=== PATIENT | female | born 1965 ===

== ENCOUNTER 2016-11-11 23:49 | Inpatient (IN) | payer OTHER ==
[2016-11-11 23:49] VITALS: BMI 32.5
[2016-11-11 23:57] VITALS: RESP 20
[2016-11-12] MEDS ORDERED: Sodium Chloride 0.9% 1,000 ML IV ONE (00:08)
--- NOTE | 2016-11-12 00:08 | C.PDOC ---
History Of Present Illness Patient presents to the ER with a complaint of abdominal pain, right flank pain , and vomiting that has worsened today. Patient states she saw her PMD who sent her for blood work; however, she states the pain was too much for she came to the ER. Denies fever or chills. Time Seen by Provider: 11/12/16 00:07 Chief Complaint (Nursing): Abdominal Pain History Per: Patient History/Exam Limitations: no limitations Onset/Duration Of Symptoms: Days Current Symptoms Are (Timing): Still Present Severity: Moderate Pain Scale Rating Of: 4 Location Of Pain/Discomfort: Diffuse Quality Of Discomfort: Unable To Describe Associated Symptoms: Vomiting. denies: Fever, Chills Exacerbating Factors: None Alleviating Factors: None Recent travel outside of the [place]: No Abnormal Vaginal Bleeding: No Past Medical History Reviewed: Historical Data, Nursing Documentation, Vital Signs Vital Signs: Last Vital Signs Temp 98.2 F 11/12/16 01:28 Pulse 85 11/12/16 01:28 Resp 20 11/12/16 01:28 BP 109/69 11/12/16 01:28 Pulse Ox 100 11/12/16 02:24 - Medical History PMH: No Chronic Diseases Surgical History: Appendectomy (2002) Family History: States: No Known Family Hx - Social History Hx Tobacco Use: No Hx Alcohol Use: No Hx Substance Use: No - Immunization History Hx Tetanus Toxoid Vaccination: No Hx Influenza Vaccination: No Hx Pneumococcal Vaccination: No Review Of Systems Constitutional: Negative for: Fever, Chills Gastrointestinal: Positive for: Vomiting, Abdominal Pain Physical Exam - Physical Exam Appears: Non-toxic Skin: Warm, Dry Oral Mucosa: Moist Chest: Symmetrical, No Tenderness Cardiovascular: Rhythm Regular, No Murmur Respiratory: No Rales, No Rhonchi, No Wheezing Gastrointestinal/Abdominal: Soft, Tenderness (RLQ) Neurological/Psych: Oriented x3 ED Course And Treatment - Laboratory Results Result Diagrams: 11/12/16 00:31 11/12/16 00:31 O2 Sat by Pulse Oximetry: 100 (Room air) Pulse Ox Interpretation: Normal Progress Note: Blood work and urinalysis ordered. Pepcid, toradol, morphine, zofran, and IV fluids administered. Disposition Discussed With : Yumiko Bajwa Comment: accepted the pt on his service and took over the care at 2:23 AM Doctor Will See Patient In The: Hospital Counseled Patient/Family Regarding: Studies Performed, Diagnosis - Disposition Disposition: HOSPITALIZED Disposition Time: 00:08 Condition: FAIR - POA Present On Arrival: Poor Glycemic Control - Clinical Impression Clinical Impression: Abdominal pain, Nausea, Acute diverticulitis - Scribe Statement The provider has reviewed the documentation as recorded by the Bettyeibrad Dupree All medical record entries made by the Bettyeibrad were at my direction and personally dictated by me. I have reviewed the chart and agree that the record accurately reflects my personal performance of the history, physical exam, medical decision making, and the department course for this patient. I have also personally directed, reviewed, and agree with the discharge instructions and disposition. Decision To Admit - Pt Status Changed To: Hospital Disposition Of: Inpatient - Admit Certification Admit to Inpatient:: After my assessment, the patient will require hospitalization for at least two midnights. This is because of the severity of symptoms shown, intensity of services needed, and/or the medical risk in this patient being treated as an outpatient. - InPatient: Physician Admission Certification:: After my assessment, the patient will require hospitalization for at least two midnights. This is because of the severity of symptoms shown, intensity of services needed, and/or the medical risk in this patient being treated as an outpatient. - . Bed Request Type: Regular Admitting Physician: Yumiko Bajwa Patient Diagnosis: Abdominal pain, Nausea, Acute diverticulitis
[2016-11-12] MEDS ORDERED: Sodium Chloride 0.9% 1,000 ML ONE (00:25)
[2016-11-12 00:34] LABS: BASO # 0.1 K/uL (0.0-0.2); BASO % 0.6 % (0.0-2.0); EOS # 0.2 K/uL (0.0-0.7); EOS % 1.6 % (0.0-4.0); HEMOGLOBIN 12.9 g/dL (11.0-16.0); LYMPH % 20.3 % (20.0-40.0); MEAN CELL VOLUME 87.7 fL (81.0-99.0); MEAN CORPUSCULAR HEMOGLOBIN 29.1 pg (27.0-31.0); MEAN CORPUSCULAR HGB CONC 33.2 g/dL (33.0-37.0); MEAN PLATELET VOLUME 8.5 fL (7.2-11.7); MONO # 0.6 K/uL (0.0-0.8); MONO % 5.9 % (0.0-10.0); NEUT # 7.1 K/uL (1.8-7.0); NEUT % 71.6 % (50.0-75.0); NRBC % 0.1 % (0.0-2.0); RBC 4.44 Mil/uL (3.80-5.20); RED CELL DISTRIBUTION WIDTH 13.6 % (11.5-14.5); WHITE BLOOD COUNT 9.9 K/uL (4.8-10.8)
[2016-11-12 00:49] LABS: GFR AFRICAN-AMERICAN > 60; GFR NON-AFRICAN AMERICAN > 60
[2016-11-12 00:50] LABS: ALB/GLOB RATIO 1.1 (1.0-2.1); ALT/SGPT 43 U/L (9-52); AST/SGOT 37 U/L (14-36); BLOOD UREA NITROGEN 10 mg/dL (7-17); CALCIUM 8.8 mg/dl (8.6-10.4); LIPASE 52 U/L (23-300)
[2016-11-12 00:51] LABS: SQUAMOUS EPITHIAL 1 /hpf (0-5); URINE BACTERIA RARE (<OCC); URINE BILIRUBIN NEGATIVE (NEGATIVE); URINE BLOOD NEGATIVE (NEGATIVE); URINE CLARITY Clear (Clear); URINE COLOR Colorless (YELLOW); URINE GLUCOSE (UA) NORMAL (Normal); URINE LEUKOCYTE ESTERASE NEG Leu/uL (Negative); URINE NITRATE NEGATIVE (NEGATIVE); URINE PROTEIN NEGATIVE (NEGATIVE); URINE UROBILINOGEN NORMAL mg/dL (0.2-1.0)
[2016-11-12 00:55] LABS: HCG,QUALITATIVE URINE NEGATIVE (NEGATIVE)
--- NOTE | 2016-11-12 02:09 | CT ---
EXAM: CT Abdomen and Pelvis Without Intravenous Contrast CLINICAL HISTORY: 51 years old, female; Pain; Abdominal pain; Patient HX: Us abd 11-06-16; Additional info: R flank pain TECHNIQUE: Axial computed tomography images of the abdomen and pelvis without intravenous contrast. This CT exam was performed using one or more of the following dose reduction techniques: automated exposure control, adjustment of the mA and/or kV according to patient size, and/or use of iterative reconstruction technique. Coronal and sagittal reformatted images were created and reviewed. COMPARISON: No relevant prior studies available. FINDINGS: Lower thorax: Calcified hilar lymph nodes. Minimal atelectasis/scarring. 0.3 cm LEFT lower lobe nodule. ABDOMEN: Liver: Fatty infiltration. Gallbladder and bile ducts: No calcified stones. No ductal dilation. Pancreas: Unremarkable. No ductal dilation. Spleen: Few splenic calcifications. Adrenals: No mass. Kidneys and ureters: Punctate calculus within RIGHT kidney. No hydronephrosis. Stomach and bowel: Few scattered diverticula within colon. Moderate mural thickening of short segment of distal descending/proximal sigmoid colon. Mild stranding within adjacent fat. No obstruction. Appendix: No findings to suggest acute appendicitis. PELVIS: Bladder: Unremarkable. No stones. Reproductive: Few coarse calcifications within uterus. ABDOMEN and PELVIS: Intraperitoneal space: No significant fluid collection. No free air. Bones/joints: No acute fracture. Soft tissues: Unremarkable. Vasculature: Unremarkable. No aneurysm. Lymph nodes: No pathologically enlarged lymph nodes. IMPRESSION: 1. Findings compatible with acute diverticulitis. Recommend endoscopy following resolution. 2. Nonobstructing renal calculus. 3. Probable fibroid uterus. 4. Pulmonary nodules. For low-risk patients, no follow-up is necessary. For high-risk patients (smoking history or other known risk factors) recommend CT at 12 months and if unchanged, no further follow-up. 5. Incidental/non-acute findings are described above.
[2016-11-12] MEDS ORDERED: Ciprofloxacin 400mg/200ml D5W 400 MG/200 ML BAG IVPB STA (02:19)
[2016-11-12] MEDS ORDERED: metroNIDAZOLE IV 500 mg/100 ml 500 MG/100 ML BAG IVPB STA (02:21)
[2016-11-12] MEDS ORDERED: metroNIDAZOLE IV 500 mg/100 ml 500 MG/100 ML BAG ONE (02:29)
[2016-11-12] MEDS ORDERED: Ciprofloxacin 400mg/200ml D5W 400 MG/200 ML BAG IVPB ONE (02:29)
[2016-11-12] MEDS: Levothyroxine 100 MCG TAB PO SCH (08:19)
[2016-11-12] MEDS: Sodium Chloride 0.9% 1,000 ML IV SCH ×2 (08:19→23:11)
[2016-11-12] MEDS: metroNIDAZOLE IV 500 mg/100 ml 500 MG/100 ML BAG IVPB SCH ×2 (09:33→16:16)
[2016-11-12] MEDS: Pantoprazole 40 mg EC Tab PO SCH (09:34)
[2016-11-12] MEDS: Multivitamin With Minerals Tab PO SCH (12:23)
--- NOTE | 2016-11-12 14:59 | CP.PCM.PN ---
Subjective - Date & Time of Evaluation Date of Evaluation: 11/12/16 Time of Evaluation: 09:35 - Subjective Subjective: PGY3 Medicine Note - Dr. Matti Bajwa's service: Patient seen and examined at bedside this AM. Patient reports LLQ abdominal pain. She has not had a bowel movement since yesterday. Patient says she feels a little better. Patient tolerating full diet. Patient denies fever, chills, chest pain, SOB. Objective - Vital Signs/Intake and Output Vital Signs (last 24 hours): Temp Pulse Resp BP Pulse Ox 97.5 F L 74 20 121/77 100 11/12/16 09:04 11/12/16 09:04 11/12/16 09:04 11/12/16 09:04 11/12/16 09:04 Intake and Output: 11/12/16 11/12/16 06:59 18:59 Intake Total 150 1070 Balance 150 1070 - Medications Medications: Current Medications Ciprofloxacin (Cipro) 500 mg PO BID [facility] Last Admin: 11/12/16 09:33 Dose: 500 mg Heparin Sodium (Porcine) (Heparin) 5,000 units SC Q12 [facility] Last Admin: 11/12/16 09:39 Dose: 5,000 units Metronidazole (Flagyl) 500 mg in 100 mls @ 100 mls/hr IVPB Q8H [facility] Last Admin: 11/12/16 09:33 Dose: 100 mls/hr Sodium Chloride (Sodium Chloride 0.9%) 1,000 mls @ 70 mls/hr IV .[id number] [facility] Last Admin: 11/12/16 08:19 Dose: 70 mls/hr Levothyroxine Sodium (Synthroid) 100 mcg PO DAILY@0630 [facility] Last Admin: 11/12/16 08:19 Dose: 100 mcg Morphine Sulfate (Morphine) 4 mg IVP Q4H PRN PRN Reason: Pain, severe (8-10) Last Admin: 11/12/16 14:30 Dose: 4 mg Multivitamins/Minerals (Therapeutic-M Tab) 1 tab PO DAILY [facility] Last Admin: 11/12/16 12:23 Dose: 1 tab Ondansetron HCl (Zofran Inj) 4 mg IVP Q6H PRN PRN Reason: Nausea/Vomiting Pantoprazole Sodium (Protonix Ec Tab) 40 mg PO DAILY [facility] Last Admin: 11/12/16 09:34 Dose: 40 mg Pneumococcal Polyvalent Vaccine (Pneumovax 23 Vaccine) 0.5 ml IM .ONCE ONE Stop: 11/15/16 10:01 - Constitutional Appears: Non-toxic, No Acute Distress - Head Exam Head Exam: NORMAL INSPECTION - Eye Exam Eye Exam: EOMI - ENT Exam ENT Exam: Mucous Membranes Moist - Respiratory Exam Respiratory Exam: Clear to Ausculation Bilateral, NORMAL BREATHING PATTERN. absent: Rales, Rhonchi, Wheezes - Cardiovascular Exam Cardiovascular Exam: REGULAR RHYTHM, +S1, +S2. absent: Gallop, Rubs, Murmur - GI/Abdominal Exam GI & Abdominal Exam: Soft, Tenderness (LLQ), Normal Bowel Sounds - Extremities Exam Extremities Exam: absent: Pedal Edema - Neurological Exam Neurological Exam: Alert, Awake, Oriented x3 - Psychiatric Exam Psychiatric exam: Normal Affect, Normal Mood - Skin Skin Exam: Normal Color, Warm Assessment and Plan - Assessment and Plan (Free Text) Assessment: Diverticulitis Cipro 500mg PO BID Flagyl 500mg IVPB Q8H NS @ 70cc/hr Zofran 4mg IVP Q6H PRN Morphine 4mg IvP Q4H PRN Hypothyroid Synthroid 100mcg PO daily Prophylaxis Hep 5000U SC Q12 Protonix 40mg PO daily
[2016-11-12] MEDS ORDERED: Morphine 4 MG/ML VIAL IVP PRN (15:30)
--- NOTE | 2016-11-12 15:35 | CP.PCM.HP ---
Past Patient History - Past Medical History & Family History Past Medical History?: Yes - Past Social History Smoking Status: Never Smoked - CARDIAC Hx Cardiac Disorders: No - PULMONARY Hx Respiratory Disorders: No - NEUROLOGICAL Hx Neurological Disorder: No - HEENT Hx HEENT Problems: Yes (USE READING GLASSES) - RENAL Hx Chronic Kidney Disease: No - ENDOCRINE/METABOLIC Hx Endocrine Disorders: Yes Other/Comment: HX OF THYROID NODULE REMOVED 1997 - HEMATOLOGICAL/ONCOLOGICAL Hx Blood Disorders: No - INTEGUMENTARY Hx Dermatological Problems: No - MUSCULOSKELETAL/RHEUMATOLOGICAL Hx Musculoskeletal Disorders: No Hx Falls: No - GASTROINTESTINAL Hx Gastrointestinal Disorders: No - GENITOURINARY/GYNECOLOGICAL Hx Genitourinary Disorders: No - PSYCHIATRIC Hx Psychophysiologic Disorder: No Hx Substance Use: No - SURGICAL HISTORY Hx Surgeries: Yes Hx Appendectomy: Yes (2002) Hx Section: Yes (1999) - ANESTHESIA Hx Anesthesia: Yes Hx Anesthesia Reactions: No Hx Malignant Hyperthermia: No Meds Allergies/Adverse Reactions: Allergies Allergy/AdvReac Type Severity Reaction Status Date / Time Iodinated Contrast- Oral and Allergy RASH Verified 03/13/16 08:26 IV Dye [Iodinated Contrast Media - IV Dye] iodine Allergy RASH Verified 03/13/16 08:26 Physical Exam - Constitutional Appears: Well - Head Exam Head Exam: ATRAUMATIC, NORMAL INSPECTION, NORMOCEPHALIC - Eye Exam Eye Exam: EOMI, Normal appearance, PERRL Pupil Exam: NORMAL ACCOMODATION, PERRL - ENT Exam ENT Exam: Mucous Membranes Moist, Normal Exam - Neck Exam Neck exam: Positive for: Normal Inspection - Respiratory Exam Respiratory Exam: Decreased Breath Sounds - Cardiovascular Exam Cardiovascular Exam: REGULAR RHYTHM, +S1, +S2 - GI/Abdominal Exam GI & Abdominal Exam: Diminished Bowel Sounds, Soft - Rectal Exam Rectal Exam: Deferred Results - Vital Signs Recent Vital Signs: Last Vital Signs Temp 97.5 F L 11/12/16 09:04 Pulse 74 11/12/16 09:04 Resp 20 11/12/16 09:04 BP 121/77 11/12/16 09:04 Pulse Ox 100 11/12/16 09:04 - Labs Result Diagrams: 11/12/16 00:31 11/12/16 00:31 Assessment & Plan - Assessment and Plan (Free Text) Plan: Protonix Lovenox GI consult IV antibiotic Follow-up with the labs vital signs and medications
--- NOTE | 2016-11-12 16:03 | CP.PCM.CON ---
<Samantha Davila - Last Filed: 11/12/16 18:43> History of Present Illness - History of Present Illness History of Present Illness: Gastroenterology Fellow/PGY5 Consult Note 51 year old female with history of Hypothyroidism, Diverticulitis 2010, and H. pylori Gastritis 03/2016 presenting with abdominal pain. Patient notes progressive abdominal pain since 10/21/16 associated with postprandial discomfort , bloating, and fullness. Patient had GI clinic visit on with a urea breath test 10/21/16 performed confirming persistent H. pylori with prior triple therapy in 03/2016. She also notes outpatient Ultrasound 11/06/16 showing hepatic steatosis. She then describes sudden onset of severe diffuse abdominal pain (left> right) yesterday, pain scale 7-8/10. Associated nausea, one bilious vomitus, and two episodes of loose diarrhea yesterday evening. Prior EGD and colonoscopy 03/13/16 showed H pylori Gastritis, 3mm sessile sigmoid hyperplastic polyp, and descending/sigmoid diverticulosis. Patient has established GI follow up December [address] Wagner. Family- denies colon cancer, stomach cancer Social- denies tobacco, alcohol illicit drug use Surgery- 3 C-sections, appendectomy, thyroidectomy Past Patient History - Past Medical History & Family History Past Medical History?: Yes - Past Social History Smoking Status: Never Smoked - CARDIAC Hx Cardiac Disorders: No - PULMONARY Hx Respiratory Disorders: No - NEUROLOGICAL Hx Neurological Disorder: No - HEENT Hx HEENT Problems: Yes (USE READING GLASSES) - RENAL Hx Chronic Kidney Disease: No - ENDOCRINE/METABOLIC Hx Endocrine Disorders: Yes Other/Comment: HX OF THYROID NODULE REMOVED 1997 - HEMATOLOGICAL/ONCOLOGICAL Hx Blood Disorders: No - INTEGUMENTARY Hx Dermatological Problems: No - MUSCULOSKELETAL/RHEUMATOLOGICAL Hx Musculoskeletal Disorders: No Hx Falls: No - GASTROINTESTINAL Hx Gastrointestinal Disorders: No - GENITOURINARY/GYNECOLOGICAL Hx Genitourinary Disorders: No - PSYCHIATRIC Hx Psychophysiologic Disorder: No Hx Substance Use: No - SURGICAL HISTORY Hx Surgeries: Yes Hx Appendectomy: Yes (2002) Hx Section: Yes (1999) - ANESTHESIA Hx Anesthesia: Yes Hx Anesthesia Reactions: No Hx Malignant Hyperthermia: No Meds Allergies/Adverse Reactions: Allergies Allergy/AdvReac Type Severity Reaction Status Date / Time Iodinated Contrast- Oral and Allergy RASH Verified 03/13/16 08:26 IV Dye [Iodinated Contrast Media - IV Dye] iodine Allergy RASH Verified 03/13/16 08:26 - Medications Medications: Current Medications Ciprofloxacin (Cipro) 500 mg PO BID [facility] Last Admin: 11/12/16 09:33 Dose: 500 mg Heparin Sodium (Porcine) (Heparin) 5,000 units SC Q12 [facility] Last Admin: 11/12/16 09:39 Dose: 5,000 units Metronidazole (Flagyl) 500 mg in 100 mls @ 100 mls/hr IVPB Q8H [facility] Last Admin: 11/12/16 09:33 Dose: 100 mls/hr Sodium Chloride (Sodium Chloride 0.9%) 1,000 mls @ 70 mls/hr IV .[id number] [facility] Last Admin: 11/12/16 08:19 Dose: 70 mls/hr Levothyroxine Sodium (Synthroid) 100 mcg PO DAILY@0630 [facility] Last Admin: 11/12/16 08:19 Dose: 100 mcg Morphine Sulfate (Morphine) 4 mg IVP Q4H PRN PRN Reason: Pain, severe (8-10) Multivitamins/Minerals (Therapeutic-M Tab) 1 tab PO DAILY [facility] Last Admin: 11/12/16 12:23 Dose: 1 tab Ondansetron HCl (Zofran Inj) 4 mg IVP Q6H PRN PRN Reason: Nausea/Vomiting Pantoprazole Sodium (Protonix Ec Tab) 40 mg PO DAILY [facility] Last Admin: 11/12/16 09:34 Dose: 40 mg Pneumococcal Polyvalent Vaccine (Pneumovax 23 Vaccine) 0.5 ml IM .ONCE ONE Stop: 11/15/16 10:01 Physical Exam - Constitutional Appears: Non-toxic, No Acute Distress - Head Exam Head Exam: ATRAUMATIC, NORMOCEPHALIC - Eye Exam Eye Exam: EOMI, PERRL Pupil Exam: PERRL. absent: Miosis, Mydriatic - ENT Exam ENT Exam: Mucous Membranes Moist, Normal Oropharynx - Neck Exam Neck exam: Positive for: Full Rom, Normal Inspection - Respiratory Exam Respiratory Exam: Clear to Auscultation Bilateral. absent: Rales, Rhonchi, Wheezes - Cardiovascular Exam Cardiovascular Exam: RRR, +S1, +S2. absent: Gallop, Rubs - GI/Abdominal Exam GI & Abdominal Exam: Guarding, Normal Bowel Sounds, Soft, Tenderness. absent: Distended, Firm, Organomegaly, Rebound, Rigid - Extremities Exam Extremities exam: Positive for: normal inspection, pedal edema - Neurological Exam Neurological exam: Alert - Psychiatric Exam Psychiatric exam: Normal Affect, Normal Mood - Skin Skin Exam: Dry, Intact, Normal Color, Warm Results - Vital Signs Recent Vital Signs: Last Vital Signs Temp 97.5 F L 11/12/16 15:00 Pulse 71 11/12/16 15:00 Resp 20 11/12/16 15:00 BP 133/77 11/12/16 15:00 Pulse Ox 98 11/12/16 15:00 - Labs Result Diagrams: 11/12/16 00:31 11/12/16 00:31 Assessment & Plan - Assessment and Plan (Free Text) Assessment: 51 year old female with history of Hypothyroidism, Diverticulosis, and H. pylori Gastritis 03/2016 presenting with abdominal pain, vomiting, and diarrhea. Outpatient ultrasound 11/06/16 showed hepatic steatosis. Active treatment of descending/sigmoid diverticulitis on CT A/P without contrast. Prior EGD and colonoscopy 03/13/16 showed H pylori Gastritis, 3mm sessile sigmoid hyperplastic polyp, and descending/sigmoid diverticulosis. Plan: >continue Cipro and Flagyl >stool workup: Cdiff, stool culture, fecal leukocytes, O&P >supportive care: pain control, anti-emetics >clear liquid diet, advance as tolerated >will benefit from outpatient re-assessment of symptoms >will benefit from repeat H pylori treatment with failed eradication 03/2016 -persistent dyspepsia and positive breath test 10/21/16 >keep previously established GI follow up with Dr. Wagner December 02, 2016 >will follow clinical course <Julian Plasencia Y - Last Filed: 11/12/16 18:50> Meds - Medications Medications: Current Medications Ciprofloxacin (Cipro) 500 mg PO BID [facility] Last Admin: 11/12/16 17:53 Dose: 500 mg Heparin Sodium (Porcine) (Heparin) 5,000 units SC Q12 [facility] Last Admin: 11/12/16 09:39 Dose: 5,000 units Metronidazole (Flagyl) 500 mg in 100 mls @ 100 mls/hr IVPB Q8H [facility] Last Admin: 11/12/16 16:16 Dose: 100 mls/hr Sodium Chloride (Sodium Chloride 0.9%) 1,000 mls @ 70 mls/hr IV .[id number] [facility] Last Admin: 11/12/16 08:19 Dose: 70 mls/hr Levothyroxine Sodium (Synthroid) 100 mcg PO DAILY@0630 [facility] Last Admin: 11/12/16 08:19 Dose: 100 mcg Morphine Sulfate (Morphine) 4 mg IVP Q4H PRN PRN Reason: Pain, severe (8-10) Multivitamins/Minerals (Therapeutic-M Tab) 1 tab PO DAILY [facility] Last Admin: 11/12/16 12:23 Dose: 1 tab Ondansetron HCl (Zofran Inj) 4 mg IVP Q6H PRN PRN Reason: Nausea/Vomiting Pantoprazole Sodium (Protonix Ec Tab) 40 mg PO DAILY [facility] Last Admin: 11/12/16 09:34 Dose: 40 mg Pneumococcal Polyvalent Vaccine (Pneumovax 23 Vaccine) 0.5 ml IM .ONCE ONE Stop: 11/15/16 10:01 Results - Vital Signs Recent Vital Signs: Last Vital Signs Temp 97.5 F L 11/12/16 15:00 Pulse 71 11/12/16 15:00 Resp 20 11/12/16 15:00 BP 133/77 11/12/16 15:00 Pulse Ox 98 11/12/16 15:00 - Labs Result Diagrams: 11/12/16 00:31 11/12/16 00:31 Attending/Attestation - Attestation I have personally seen and examined this patient.: Yes I have fully participated in the care of the patient.: Yes I have reviewed all pertinent clinical information: Yes Notes (Text): 11/12/16 18:44 I have seen and examined patient with GI fellow. Agree with above documentation with the following additions. In brief, this is a 51 year old female with history of hypothyroidism, diverticulitis, who presents with complaint of abdominal pain. She describes a LLQ discomfort with radiation to umbilicus along with bloating that is worse following meal consumption for the past 3 weeks which got worse yesterday. This was associated with nausea and two episodes of non-bloody emesis and diarrhea. She was recently diagnosed with treatment resistant helicobacter pylori associated gastritis and has not started alternative therapy yet. She had a colonoscopy in March [address] Wagner which showed diverticulosis and a hyperplastic polyp. Obesity (BMI 33) Hypothyroidism Abdominal pain - acute diverticulitis, CT imaging reviewed by me showing segment of mural thickening in descending/sigmoid colon without alexandra-colonic abscess - Clear liquid diet as tolerated - Continue with antibiotic therapy - Obtain stool studies - Pain control and anti-emetic therapy PRN - She will eventually need to undergo therapy for Hpylori associated gastritis, has an outpatient follow up appointment at the end of this month - No clinical necessity for repeat colonoscopy given recent procedure. Rather she would benefit from aggressive bowel regimen and dietary modification. Will continue to monitor patient clinical course.
[2016-11-13] MEDS: metroNIDAZOLE IV 500 mg/100 ml 500 MG/100 ML BAG IVPB SCH ×3 (01:16→17:30)
[2016-11-13] MEDS: Levothyroxine 100 MCG TAB PO SCH (06:18)
[2016-11-13] MEDS ORDERED: Levothyroxine 100 MCG TAB PO SCH (06:30)
--- NOTE | 2016-11-13 07:03 | CP.PCM.PN ---
<Samantha Davila - Last Filed: 11/13/16 06:59> Subjective - Date & Time of Evaluation Date of Evaluation: 11/13/16 Time of Evaluation: 06:59 - Subjective Subjective: Gastroenterology Fellow/PGY5 Progress Note Patient notes mild improvement in abdominal pain, pain scale 8/10. Tolerated clear liquids. No bowel movement yesterday. A 12-point review of systems negative except for as above. Objective - Vital Signs/Intake and Output Vital Signs (last 24 hours): Temp Pulse Resp BP Pulse Ox 98 F 78 20 123/73 97 11/13/16 00:00 11/13/16 00:00 11/13/16 00:00 11/13/16 00:00 11/13/16 00:00 Intake and Output: 11/12/16 11/13/16 18:59 06:59 Intake Total 1070 990 Balance 1070 990 - Medications Medications: Current Medications Ciprofloxacin (Cipro) 500 mg PO BID [facility] Last Admin: 11/12/16 17:53 Dose: 500 mg Heparin Sodium (Porcine) (Heparin) 5,000 units SC Q12 [facility] Last Admin: 11/12/16 21:12 Dose: 5,000 units Metronidazole (Flagyl) 500 mg in 100 mls @ 100 mls/hr IVPB Q8H [facility] Last Admin: 11/13/16 01:16 Dose: 100 mls/hr Sodium Chloride (Sodium Chloride 0.9%) 1,000 mls @ 70 mls/hr IV .[id number] [facility] Last Admin: 11/12/16 23:11 Dose: 70 mls/hr Levothyroxine Sodium (Synthroid) 100 mcg PO DAILY@0630 [facility] Last Admin: 11/13/16 06:18 Dose: 100 mcg Morphine Sulfate (Morphine) 4 mg IVP Q4H PRN PRN Reason: Pain, severe (8-10) Last Admin: 11/12/16 21:31 Dose: 4 mg Multivitamins/Minerals (Therapeutic-M Tab) 1 tab PO DAILY [facility] Last Admin: 11/12/16 12:23 Dose: 1 tab Ondansetron HCl (Zofran Inj) 4 mg IVP Q6H PRN PRN Reason: Nausea/Vomiting Pantoprazole Sodium (Protonix Ec Tab) 40 mg PO DAILY [facility] Last Admin: 11/12/16 09:34 Dose: 40 mg Pneumococcal Polyvalent Vaccine (Pneumovax 23 Vaccine) 0.5 ml IM .ONCE ONE Stop: 11/15/16 10:01 - Constitutional Appears: Non-toxic, No Acute Distress - Head Exam Head Exam: ATRAUMATIC, NORMOCEPHALIC - Eye Exam Eye Exam: EOMI, PERRL Pupil Exam: PERRL. absent: Miosis, Mydriatic - ENT Exam ENT Exam: Mucous Membranes Moist, Normal Oropharynx - Neck Exam Neck Exam: Full ROM, Normal Inspection - Respiratory Exam Respiratory Exam: Clear to Ausculation Bilateral. absent: Rales, Rhonchi, Wheezes - Cardiovascular Exam Cardiovascular Exam: RRR, +S1, +S2. absent: Gallop, Rubs - GI/Abdominal Exam GI & Abdominal Exam: Soft, Tenderness, Normal Bowel Sounds. absent: Distended, Firm, Guarding, Rigid, Organomegaly, Rebound Additional comments: left miley-abdomen pain to palpation - Extremities Exam Extremities Exam: Normal Inspection. absent: Pedal Edema - Neurological Exam Neurological Exam: Alert, Awake - Psychiatric Exam Psychiatric exam: Normal Affect, Normal Mood - Skin Skin Exam: Dry, Intact, Normal Color, Warm Assessment and Plan - Assessment and Plan (Free Text) Assessment: 51 year old female with history of Hypothyroidism, Diverticulosis, and H. pylori Gastritis 03/2016 presenting with abdominal pain, vomiting, and diarrhea. Outpatient ultrasound 11/06/16 showed hepatic steatosis. Active treatment of descending/sigmoid diverticulitis on CT A/P without contrast. Prior EGD and colonoscopy 03/13/16 showed H pylori Gastritis, 3mm sessile sigmoid hyperplastic polyp, and descending/sigmoid diverticulosis. Plan: >continue Cipro and Flagyl >stool workup: Cdiff, stool culture, fecal leukocytes, O&P >supportive care: pain control, anti-emetics >advance to full liquid diet >will benefit from outpatient follow up for H pylori treatment with failed eradication 03/2016 -persistent dyspepsia and positive breath test 10/21/16 >keep previously established GI follow up with Dr. Wagner, December 02, 2016 >will follow clinical course <Chilo Wagner - Last Filed: 11/13/16 13:49> Objective - Vital Signs/Intake and Output Vital Signs (last 24 hours): Temp Pulse Resp BP Pulse Ox 98 F 70 20 137/88 99 11/13/16 08:00 11/13/16 08:00 11/13/16 08:00 11/13/16 08:00 11/13/16 08:00 Intake and Output: 11/13/16 11/13/16 06:59 18:59 Intake Total 990 800 Balance 990 800 - Medications Medications: Current Medications Ciprofloxacin (Cipro) 500 mg PO BID [facility] Last Admin: 11/13/16 09:27 Dose: 500 mg Heparin Sodium (Porcine) (Heparin) 5,000 units SC Q12 [facility] Last Admin: 11/13/16 09:28 Dose: 5,000 units Metronidazole (Flagyl) 500 mg in 100 mls @ 100 mls/hr IVPB Q8H [facility] Last Admin: 11/13/16 09:26 Dose: 100 mls/hr Sodium Chloride (Sodium Chloride 0.9%) 1,000 mls @ 70 mls/hr IV .[id number] [facility] Last Admin: 11/13/16 11:55 Dose: 70 mls/hr Levothyroxine Sodium (Synthroid) 100 mcg PO DAILY@0630 [facility] Last Admin: 11/13/16 06:18 Dose: 100 mcg Morphine Sulfate (Morphine) 4 mg IVP Q4H PRN PRN Reason: Pain, severe (8-10) Last Admin: 11/12/16 21:31 Dose: 4 mg Multivitamins/Minerals (Therapeutic-M Tab) 1 tab PO DAILY [facility] Last Admin: 11/13/16 09:27 Dose: 1 tab Ondansetron HCl (Zofran Inj) 4 mg IVP Q6H PRN PRN Reason: Nausea/Vomiting Pantoprazole Sodium (Protonix Ec Tab) 40 mg PO DAILY [facility] Last Admin: 11/13/16 09:27 Dose: 40 mg Pneumococcal Polyvalent Vaccine (Pneumovax 23 Vaccine) 0.5 ml IM .ONCE ONE Stop: 11/15/16 10:01 - Labs Labs: 11/13/16 11:42 11/13/16 11:42 Attending/Attestation - Attestation I have personally seen and examined this patient.: Yes I have fully participated in the care of the patient.: Yes I have reviewed all pertinent clinical information, including history, physical exam and plan: Yes Notes (Text): 11/13/16 13:47 51 year old female with h/o hypothyroidism, Diverticulosis, and H. pylori Gastritis admitted with acute diverticulitis 1. Acute diverticulitis 2. Helicobacter pylori gastritis Plan: -uncomplicated acute diverticulitis -continue antibiotics, plan for 10-14 day course -slowly improving -supportive care -advance diet as tolerated -will need retreatment of h pylori in the future
--- NOTE | 2016-11-13 08:33 | CP.PCM.PN ---
Subjective - Date & Time of Evaluation Date of Evaluation: 11/13/16 Time of Evaluation: 08:00 - Subjective Subjective: PGY3 Medicine Note - Dr. Matti Bajwa's service: Patient seen and examined at bedside this AM. Patient continues to experience LLQ pain, which has improved a great deal since yesterday. She is tolerating CLD ordered by GI. She had a minor headache this morning. Denies chest pain, SOB , fevers, chills, diarrhea, constipation, nausea, vomiting. Last BM was 2 days ago at home. Objective - Vital Signs/Intake and Output Vital Signs (last 24 hours): Temp Pulse Resp BP Pulse Ox 98 F 78 20 123/73 97 11/13/16 00:00 11/13/16 00:00 11/13/16 00:00 11/13/16 00:00 11/13/16 00:00 Intake and Output: 11/13/16 11/13/16 06:59 18:59 Intake Total 990 800 Balance 990 800 - Medications Medications: Current Medications Ciprofloxacin (Cipro) 500 mg PO BID [facility] Last Admin: 11/12/16 17:53 Dose: 500 mg Heparin Sodium (Porcine) (Heparin) 5,000 units SC Q12 [facility] Last Admin: 11/12/16 21:12 Dose: 5,000 units Metronidazole (Flagyl) 500 mg in 100 mls @ 100 mls/hr IVPB Q8H [facility] [place] Last Admin: 11/13/16 01:16 Dose: 100 mls/hr Sodium Chloride (Sodium Chloride 0.9%) 1,000 mls @ 70 mls/hr IV .[id number] [facility] Last Admin: 11/12/16 23:11 Dose: 70 mls/hr Levothyroxine Sodium (Synthroid) 100 mcg PO DAILY@0630 [facility] Last Admin: 11/13/16 06:18 Dose: 100 mcg Morphine Sulfate (Morphine) 4 mg IVP Q4H PRN PRN Reason: Pain, severe (8-10) Last Admin: 11/12/16 21:31 Dose: 4 mg Multivitamins/Minerals (Therapeutic-M Tab) 1 tab PO DAILY [facility] Last Admin: 11/12/16 12:23 Dose: 1 tab Ondansetron HCl (Zofran Inj) 4 mg IVP Q6H PRN PRN Reason: Nausea/Vomiting Pantoprazole Sodium (Protonix Ec Tab) 40 mg PO DAILY [facility] Last Admin: 11/12/16 09:34 Dose: 40 mg Pneumococcal Polyvalent Vaccine (Pneumovax 23 Vaccine) 0.5 ml IM .ONCE ONE Stop: 11/15/16 10:01 - Constitutional Appears: No Acute Distress - Head Exam Head Exam: NORMAL INSPECTION, NORMOCEPHALIC - Eye Exam Eye Exam: EOMI - ENT Exam ENT Exam: Mucous Membranes Moist - Respiratory Exam Respiratory Exam: Clear to Ausculation Bilateral, NORMAL BREATHING PATTERN - Cardiovascular Exam Cardiovascular Exam: REGULAR RHYTHM, +S1, +S2 - GI/Abdominal Exam GI & Abdominal Exam: Soft, Tenderness (LLQ), Normal Bowel Sounds. absent: Firm - Extremities Exam Extremities Exam: Full ROM, Normal Inspection. absent: Pedal Edema - Back Exam Back Exam: NORMAL INSPECTION - Neurological Exam Neurological Exam: Alert, Awake, Oriented x3 - Psychiatric Exam Psychiatric exam: Normal Affect, Normal Mood - Skin Skin Exam: Normal Color, Warm Assessment and Plan (1) Acute diverticulitis Assessment & Plan: GI consult placed-Dr. Plasencia- help appreciated As per GI team: * continue IV antibiotics * f/u stool workup: Cdiff, stool culture, fecal leukocytes, O&P * supportive care: pain control, anti-emetics * advance to full liquid diet today * Will benefit from outpatient follow up for H pylori treatment with failed eradication 03/2016 Cipro 500mg PO BID Flagyl 500mg IVPB Q8H NS @ 70cc/hr Zofran 4mg IVP Q6H PRN Morphine 4mg IvP Q4H PRN Status: Acute (2) Hypothyroidism Assessment & Plan: Synthroid 100mcg PO daily Status: Acute (3) Prophylactic measure Assessment & Plan: Hep 5000U SC Q12 Protonix 40mg PO daily Status: Acute - Assessment and Plan (Free Text) Assessment: All management as per Dr. Jill Bajwa.
[2016-11-13 09:13] VITALS: O2SAT 99
[2016-11-13] MEDS: Pantoprazole 40 mg EC Tab PO SCH (09:27)
[2016-11-13] MEDS: Multivitamin With Minerals Tab PO SCH (09:27)
[2016-11-13] MEDS: Sodium Chloride 0.9% 1,000 ML IV SCH (11:55)
[2016-11-13 11:56] LABS: BASO # 0.1 K/uL (0.0-0.2); BASO % 0.9 % (0.0-2.0); EOS # 0.2 K/uL (0.0-0.7); HEMOGLOBIN 12.5 g/dL (11.0-16.0); LYMPH # 1.8 K/uL (1.0-4.3); LYMPH % 30.5 % (20.0-40.0); MEAN CELL VOLUME 88.2 fL (81.0-99.0); MEAN CORPUSCULAR HEMOGLOBIN 29.7 pg (27.0-31.0); MEAN CORPUSCULAR HGB CONC 33.7 g/dL (33.0-37.0); MEAN PLATELET VOLUME 9.1 fL (7.2-11.7); MONO # 0.4 K/uL (0.0-0.8); MONO % 6.7 % (0.0-10.0); NEUT # 3.5 K/uL (1.8-7.0); NEUT % 58.9 % (50.0-75.0); RBC 4.2 Mil/uL (3.80-5.20); RED CELL DISTRIBUTION WIDTH 13.6 % (11.5-14.5); WHITE BLOOD COUNT 5.9 K/uL (4.8-10.8)
[2016-11-13 12:03] LABS: ALBUMIN 3.8 g/dL (3.5-5.0)
[2016-11-13 12:05] LABS: GFR AFRICAN-AMERICAN > 60; GFR NON-AFRICAN AMERICAN > 60
[2016-11-13 12:06] LABS: ALT/SGPT 47 U/L (9-52); AST/SGOT 40 U/L (14-36); BLOOD UREA NITROGEN 4 mg/dL (7-17); CALCIUM 8.5 mg/dl (8.6-10.4)
[2016-11-13 12:33] LABS: HEPATITIS B SURFACE AG NEGATIVE (NEGATIVE)
[2016-11-13 12:38] LABS: HEPATITIS A IGM NEGATIVE (NEGATIVE)
[2016-11-13 12:39] LABS: HEPATITIS B CORE AB NEGATIVE (NEGATIVE)
[2016-11-13 12:51] LABS: HEPATITIS C ANTIBODY NEGATIVE (NEGATIVE)
--- NOTE | 2016-11-13 17:58 | CP.PCM.PN ---
Subjective - Date & Time of Evaluation Date of Evaluation: 11/13/16 Time of Evaluation: 08:40 - Subjective Subjective: clinically same Objective - Vital Signs/Intake and Output Vital Signs (last 24 hours): Temp Pulse Resp BP Pulse Ox 98.5 F 61 20 136/79 99 11/13/16 16:00 11/13/16 16:00 11/13/16 16:00 11/13/16 16:00 11/13/16 16:00 Intake and Output: 11/13/16 11/13/16 06:59 18:59 Intake Total 990 1820 Balance 990 1820 - Medications Medications: Current Medications Ciprofloxacin (Cipro) 500 mg PO BID [facility] Last Admin: 11/13/16 09:27 Dose: 500 mg Heparin Sodium (Porcine) (Heparin) 5,000 units SC Q12 [facility] Last Admin: 11/13/16 09:28 Dose: 5,000 units Metronidazole (Flagyl) 500 mg in 100 mls @ 100 mls/hr IVPB Q8H [facility] Last Admin: 11/13/16 09:26 Dose: 100 mls/hr Sodium Chloride (Sodium Chloride 0.9%) 1,000 mls @ 70 mls/hr IV .[id number] [facility] Last Admin: 11/13/16 11:55 Dose: 70 mls/hr Levothyroxine Sodium (Synthroid) 100 mcg PO DAILY@0630 [facility] Last Admin: 11/13/16 06:18 Dose: 100 mcg Morphine Sulfate (Morphine) 4 mg IVP Q4H PRN PRN Reason: Pain, severe (8-10) Last Admin: 11/12/16 21:31 Dose: 4 mg Multivitamins/Minerals (Therapeutic-M Tab) 1 tab PO DAILY [facility] Last Admin: 11/13/16 09:27 Dose: 1 tab Ondansetron HCl (Zofran Inj) 4 mg IVP Q6H PRN PRN Reason: Nausea/Vomiting Pantoprazole Sodium (Protonix Ec Tab) 40 mg PO DAILY [facility] Last Admin: 11/13/16 09:27 Dose: 40 mg Pneumococcal Polyvalent Vaccine (Pneumovax 23 Vaccine) 0.5 ml IM .ONCE ONE Stop: 11/15/16 10:01 - Labs Labs: 11/13/16 11:42 11/13/16 11:42 - Constitutional Appears: Well - Head Exam Head Exam: ATRAUMATIC, NORMAL INSPECTION, NORMOCEPHALIC - Eye Exam Eye Exam: EOMI, Normal appearance, PERRL Pupil Exam: NORMAL ACCOMODATION, PERRL - ENT Exam ENT Exam: Mucous Membranes Moist, Normal Exam - Neck Exam Neck Exam: Full ROM, Normal Inspection. absent: Lymphadenopathy - Respiratory Exam Respiratory Exam: Decreased Breath Sounds - Cardiovascular Exam Cardiovascular Exam: REGULAR RHYTHM, +S1, +S2 - GI/Abdominal Exam GI & Abdominal Exam: Soft, Diminished Bowel Sounds - Rectal Exam Rectal Exam: Deferred
[2016-11-14] MEDS: metroNIDAZOLE IV 500 mg/100 ml 500 MG/100 ML BAG IVPB SCH ×2 (00:57→10:28)
[2016-11-14] MEDS: Levothyroxine 100 MCG TAB PO SCH (06:04)
[2016-11-14] MEDS: Sodium Chloride 0.9% 1,000 ML IV SCH (06:06)
[2016-11-14 07:18] LABS: BASO % 0.8 % (0.0-2.0); EOS # 0.3 K/uL (0.0-0.7); EOS % 5.6 % (0.0-4.0); HEMOGLOBIN 12.1 g/dL (11.0-16.0); LYMPH # 1.5 K/uL (1.0-4.3); LYMPH % 31.1 % (20.0-40.0); MEAN CELL VOLUME 87.7 fL (81.0-99.0); MEAN CORPUSCULAR HEMOGLOBIN 29.4 pg (27.0-31.0); MEAN CORPUSCULAR HGB CONC 33.5 g/dL (33.0-37.0); MEAN PLATELET VOLUME 8.8 fL (7.2-11.7); MONO # 0.3 K/uL (0.0-0.8); MONO % 6.8 % (0.0-10.0); NEUT # 2.7 K/uL (1.8-7.0); NEUT % 55.7 % (50.0-75.0); NRBC % 0.1 % (0.0-2.0); RBC 4.12 Mil/uL (3.80-5.20); RED CELL DISTRIBUTION WIDTH 13.8 % (11.5-14.5); WHITE BLOOD COUNT 4.8 K/uL (4.8-10.8)
[2016-11-14 07:22] LABS: ALBUMIN 3.5 g/dL (3.5-5.0)
[2016-11-14 07:24] LABS: GFR AFRICAN-AMERICAN > 60; GFR NON-AFRICAN AMERICAN > 60
[2016-11-14 07:25] LABS: ALT/SGPT 48 U/L (9-52); BLOOD UREA NITROGEN 5 mg/dL (7-17)
[2016-11-14 07:26] LABS: CALCIUM 7.9 mg/dl (8.6-10.4); MAGNESIUM 2.1 mg/dL (1.6-2.3)
[2016-11-14 07:47] LABS: AST/SGOT 44 U/L (14-36)
[2016-11-14 09:21] VITALS: BP 149/82; PULSE 60; TEMP 97.7
--- NOTE | 2016-11-14 09:56 | CP.PCM.PN ---
<GiovanniSamantha - Last Filed: 11/14/16 09:53> Subjective - Date & Time of Evaluation Date of Evaluation: 11/14/16 Time of Evaluation: 09:53 - Subjective Subjective: Gastroenterology Fellow/PGY5 Progress Note Patient notes improving abdominal pain, pain scale 5/10. Tolerated regular diet. No bowel movement since Wednesday. A 12-point review of systems negative except for as above. Objective - Vital Signs/Intake and Output Vital Signs (last 24 hours): Temp Pulse Resp BP Pulse Ox 97.7 F 60 20 149/82 99 11/14/16 07:20 11/14/16 07:20 11/14/16 07:20 11/14/16 07:20 11/14/16 07:20 Intake and Output: 11/14/16 11/14/16 06:59 18:59 Intake Total 1760 Balance 1760 - Medications Medications: Current Medications Ciprofloxacin (Cipro) 500 mg PO BID [facility] Last Admin: 11/13/16 18:13 Dose: 500 mg Heparin Sodium (Porcine) (Heparin) 5,000 units SC Q12 [facility] Last Admin: 11/13/16 21:20 Dose: 5,000 units Metronidazole (Flagyl) 500 mg in 100 mls @ 100 mls/hr IVPB Q8H [facility] Last Admin: 11/14/16 00:57 Dose: 100 mls/hr Sodium Chloride (Sodium Chloride 0.9%) 1,000 mls @ 70 mls/hr IV .[id number] [facility] Last Admin: 11/14/16 06:06 Dose: 70 mls/hr Levothyroxine Sodium (Synthroid) 100 mcg PO DAILY@0630 [facility] Last Admin: 11/14/16 06:04 Dose: 100 mcg Morphine Sulfate (Morphine) 4 mg IVP Q4H PRN PRN Reason: Pain, severe (8-10) Last Admin: 11/12/16 21:31 Dose: 4 mg Multivitamins/Minerals (Therapeutic-M Tab) 1 tab PO DAILY [facility] Last Admin: 11/13/16 09:27 Dose: 1 tab Ondansetron HCl (Zofran Inj) 4 mg IVP Q6H PRN PRN Reason: Nausea/Vomiting Pantoprazole Sodium (Protonix Ec Tab) 40 mg PO DAILY [facility] Last Admin: 11/13/16 09:27 Dose: 40 mg Pneumococcal Polyvalent Vaccine (Pneumovax 23 Vaccine) 0.5 ml IM .ONCE ONE Stop: 11/15/16 10:01 - Labs Labs: 11/14/16 07:00 11/14/16 07:00 - Constitutional Appears: Non-toxic, No Acute Distress - Head Exam Head Exam: ATRAUMATIC, NORMOCEPHALIC - Eye Exam Eye Exam: EOMI, PERRL Pupil Exam: PERRL. absent: Miosis, Mydriatic - ENT Exam ENT Exam: Mucous Membranes Moist, Normal Oropharynx - Neck Exam Neck Exam: Full ROM, Normal Inspection - Respiratory Exam Respiratory Exam: Clear to Ausculation Bilateral. absent: Rales, Rhonchi, Wheezes - Cardiovascular Exam Cardiovascular Exam: RRR, +S1, +S2. absent: Gallop, Rubs - GI/Abdominal Exam GI & Abdominal Exam: Soft, Tenderness, Normal Bowel Sounds. absent: Distended, Firm, Guarding, Rigid, Mass, Organomegaly, Rebound Additional comments: mild LLQ discomfort to palpation - Extremities Exam Extremities Exam: Normal Inspection. absent: Pedal Edema - Neurological Exam Neurological Exam: Alert, Awake - Psychiatric Exam Psychiatric exam: Normal Affect, Normal Mood - Skin Skin Exam: Dry, Intact, Normal Color, Warm Assessment and Plan - Assessment and Plan (Free Text) Assessment: 51 year old female with history of Hypothyroidism, Diverticulosis, and H. pylori Gastritis 03/2016 presenting with abdominal pain, vomiting, and diarrhea. Outpatient ultrasound 11/06/16 showed hepatic steatosis. Active treatment of descending/sigmoid diverticulitis on CT A/P without contrast. Prior EGD and colonoscopy 03/13/16 showed H pylori Gastritis, 3mm sessile sigmoid hyperplastic polyp, and descending/sigmoid diverticulosis. Plan: >continue Cipro and Flagyl for 10-14 days total >tolerating regular diet >Miralax daily >outpatient follow up with Dr. Wagner 12/02/16 for re-evaluation and H pylori re- treatment >clear for discharge from GI standpoint <Chilo Wagner - Last Filed: 11/14/16 11:32> Objective - Vital Signs/Intake and Output Vital Signs (last 24 hours): Temp Pulse Resp BP Pulse Ox 97.7 F 60 20 149/82 99 11/14/16 07:20 11/14/16 07:20 11/14/16 07:20 11/14/16 07:20 11/14/16 07:20 Intake and Output: 11/14/16 11/14/16 06:59 18:59 Intake Total 1760 Balance 1760 - Medications Medications: Current Medications Ciprofloxacin (Cipro) 500 mg PO BID [facility] Last Admin: 11/14/16 10:29 Dose: 500 mg Heparin Sodium (Porcine) (Heparin) 5,000 units SC Q12 [facility] Last Admin: 11/14/16 10:29 Dose: 5,000 units Metronidazole (Flagyl) 500 mg in 100 mls @ 100 mls/hr IVPB Q8H [facility] Last Admin: 11/14/16 10:28 Dose: 100 mls/hr Sodium Chloride (Sodium Chloride 0.9%) 1,000 mls @ 70 mls/hr IV .[id number] [facility] Last Admin: 11/14/16 06:06 Dose: 70 mls/hr Levothyroxine Sodium (Synthroid) 100 mcg PO DAILY@0630 [facility] Last Admin: 11/14/16 06:04 Dose: 100 mcg Morphine Sulfate (Morphine) 4 mg IVP Q4H PRN PRN Reason: Pain, severe (8-10) Last Admin: 11/12/16 21:31 Dose: 4 mg Multivitamins/Minerals (Therapeutic-M Tab) 1 tab PO DAILY [facility] Last Admin: 11/14/16 10:29 Dose: 1 tab Ondansetron HCl (Zofran Inj) 4 mg IVP Q6H PRN PRN Reason: Nausea/Vomiting Pantoprazole Sodium (Protonix Ec Tab) 40 mg PO DAILY [facility] Last Admin: 11/14/16 10:29 Dose: 40 mg Pneumococcal Polyvalent Vaccine (Pneumovax 23 Vaccine) 0.5 ml IM .ONCE ONE Stop: 11/15/16 10:01 Polyethylene Glycol (Miralax) 17 gm PO DAILY [facility] Last Admin: 11/14/16 10:31 Dose: 17 gm - Labs Labs: 11/14/16 07:00 11/14/16 07:00 Attending/Attestation - Attestation I have personally seen and examined this patient.: Yes I have fully participated in the care of the patient.: Yes I have reviewed all pertinent clinical information, including history, physical exam and plan: Yes Notes (Text): 11/14/16 11:31 51 year old female with h/o hypothyroidism, Diverticulosis, and H. pylori Gastritis admitted with acute diverticulitis 1. Acute diverticulitis 2. Helicobacter pylori gastritis 3. Constipation Plan: -uncomplicated acute diverticulitis -continue antibiotics, plan for 10-14 day course, cipro / flagyl fine -slowly improving -supportive care -diet as tolerated -bowel regimen with miralax -will need retreatment of h pylori in the future
[2016-11-14] MEDS ORDERED: POLYETHYLENE GLYCOL 3350 17 GM/Dose PACKET PO SCH (10:00)
[2016-11-14] MEDS: Multivitamin With Minerals Tab PO SCH (10:29)
[2016-11-14] MEDS: Pantoprazole 40 mg EC Tab PO SCH (10:29)
[2016-11-14] MEDS ORDERED: Pneumococcal 23-Valent Vaccine IM ONE (13:20)
--- NOTE | 2016-11-14 13:58 | CP.PCM.PN ---
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 Pt seen today, abdominal pain, improved, tolerating diet, denies any N/V/D Objective - Vital Signs/Intake and Output Vital Signs (last 24 hours): Temp Pulse Resp BP Pulse Ox 97.7 F 60 20 149/82 99 11/14/16 07:20 11/14/16 07:20 11/14/16 07:20 11/14/16 07:20 11/14/16 07:20 Intake and Output: 11/14/16 11/14/16 06:59 18:59 Intake Total 1760 Balance 1760 - Medications Medications: Current Medications Ciprofloxacin (Cipro) 500 mg PO BID [facility] Last Admin: 11/14/16 10:29 Dose: 500 mg Heparin Sodium (Porcine) (Heparin) 5,000 units SC Q12 [facility] Last Admin: 11/14/16 10:29 Dose: 5,000 units Metronidazole (Flagyl) 500 mg in 100 mls @ 100 mls/hr IVPB Q8H [facility] Last Admin: 11/14/16 10:28 Dose: 100 mls/hr Sodium Chloride (Sodium Chloride 0.9%) 1,000 mls @ 70 mls/hr IV .[id number] [facility] Last Admin: 11/14/16 06:06 Dose: 70 mls/hr Levothyroxine Sodium (Synthroid) 100 mcg PO DAILY@0630 [facility] Last Admin: 11/14/16 06:04 Dose: 100 mcg Morphine Sulfate (Morphine) 4 mg IVP Q4H PRN PRN Reason: Pain, severe (8-10) Last Admin: 11/12/16 21:31 Dose: 4 mg Multivitamins/Minerals (Therapeutic-M Tab) 1 tab PO DAILY [facility] Last Admin: 11/14/16 10:29 Dose: 1 tab Ondansetron HCl (Zofran Inj) 4 mg IVP Q6H PRN PRN Reason: Nausea/Vomiting Pantoprazole Sodium (Protonix Ec Tab) 40 mg PO DAILY [facility] Last Admin: 11/14/16 10:29 Dose: 40 mg Polyethylene Glycol (Miralax) 17 gm PO DAILY [facility] Last Admin: 11/14/16 10:31 Dose: 17 gm - Labs Labs: 11/14/16 07:00 11/14/16 07:00 Assessment and Plan - Assessment and Plan (Free Text) Assessment: 51 year old female with history of Hypothyroidism, Diverticulosis, and H. pylori Gastritis admitted with abdominal pain, vomiting, and diarrhea. tolerating regular diet seen by Dr. Sanchez today ,outpatient follow up with Dr. Wagner 12/02/16 for re- evaluation and H pylori re-treatment and cleared for discharge from GI standpoint continue Cipro and Flagyl for 10-14 days total seen by Dr. matthias benson cleared for discharge home otday and f/u with Dr. Hall office on Wednesday Discharge instructions discussed with patient , who understands and agrees with plan
--- NOTE | 2016-11-14 14:22 | CP.PCM.PN ---
Subjective - Date & Time of Evaluation Date of Evaluation: 11/14/16 Time of Evaluation: 08:20 - Subjective Subjective: clinically same Objective - Vital Signs/Intake and Output Vital Signs (last 24 hours): Temp Pulse Resp BP Pulse Ox 97.7 F 60 20 149/82 99 11/14/16 07:20 11/14/16 07:20 11/14/16 07:20 11/14/16 07:20 11/14/16 07:20 Intake and Output: 11/14/16 11/14/16 06:59 18:59 Intake Total 1760 Balance 1760 - Medications Medications: Current Medications Ciprofloxacin (Cipro) 500 mg PO BID [facility] Last Admin: 11/14/16 10:29 Dose: 500 mg Heparin Sodium (Porcine) (Heparin) 5,000 units SC Q12 [facility] Last Admin: 11/14/16 10:29 Dose: 5,000 units Metronidazole (Flagyl) 500 mg in 100 mls @ 100 mls/hr IVPB Q8H [facility] Last Admin: 11/14/16 10:28 Dose: 100 mls/hr Sodium Chloride (Sodium Chloride 0.9%) 1,000 mls @ 70 mls/hr IV .[id number] [facility] Last Admin: 11/14/16 06:06 Dose: 70 mls/hr Levothyroxine Sodium (Synthroid) 100 mcg PO DAILY@0630 [facility] Last Admin: 11/14/16 06:04 Dose: 100 mcg Morphine Sulfate (Morphine) 4 mg IVP Q4H PRN PRN Reason: Pain, severe (8-10) Last Admin: 11/12/16 21:31 Dose: 4 mg Multivitamins/Minerals (Therapeutic-M Tab) 1 tab PO DAILY [facility] Last Admin: 11/14/16 10:29 Dose: 1 tab Ondansetron HCl (Zofran Inj) 4 mg IVP Q6H PRN PRN Reason: Nausea/Vomiting Pantoprazole Sodium (Protonix Ec Tab) 40 mg PO DAILY [facility] Last Admin: 11/14/16 10:29 Dose: 40 mg Polyethylene Glycol (Miralax) 17 gm PO DAILY [facility] Last Admin: 11/14/16 10:31 Dose: 17 gm - Labs Labs: 11/14/16 07:00 11/14/16 07:00 - Constitutional Appears: Well - Head Exam Head Exam: ATRAUMATIC, NORMAL INSPECTION, NORMOCEPHALIC - Eye Exam Eye Exam: EOMI, Normal appearance, PERRL Pupil Exam: NORMAL ACCOMODATION, PERRL - ENT Exam ENT Exam: Mucous Membranes Moist, Normal Exam - Neck Exam Neck Exam: Full ROM, Normal Inspection. absent: Lymphadenopathy - Respiratory Exam Respiratory Exam: Decreased Breath Sounds - Cardiovascular Exam Cardiovascular Exam: REGULAR RHYTHM, +S1, +S2 - GI/Abdominal Exam GI & Abdominal Exam: Soft, Diminished Bowel Sounds - Rectal Exam Rectal Exam: Deferred
[2016-11-15] MEDS ORDERED: Pneumococcal 23-Valent Vaccine IM ONE (10:00)
== END 2016-11-14 14:43 | disposition home or self-care (01) | DRG 183 ==
LOC: C.ER 23:49 → C.3T 11-12 02:20
PROVIDERS: ADMIT Internal Medicine Nephrology; ATTEND Internal Medicine Nephrology
DX: K57.32 Diverticulitis of large intestine without perforation or abscess without bleeding (principal); K76.0 Fatty (change of) liver, not elsewhere classified; B96.81 Helicobacter pylori [H. pylori] as the cause of diseases classified elsewhere; E03.9 Hypothyroidism, unspecified; K29.70 Gastritis, unspecified, without bleeding; K59.00 Constipation, unspecified; E66.9 Obesity, unspecified; Z68.33 Body mass index [BMI] 33.0-33.9, adult; Z90.49 Acquired absence of other specified parts of digestive tract; Z23 Encounter for immunization

== ENCOUNTER 2017-08-03 19:14 | Emergency (ER) | payer OTHER ==
[2017-08-03 19:14] VITALS: BMI 32.5
[2017-08-03 19:24] VITALS: RESP 20
[2017-08-03 19:46] LABS: HCG,QUALITATIVE URINE NEGATIVE (NEGATIVE)
[2017-08-03 19:49] LABS: SQUAMOUS EPITHIAL 19 /hpf (0-5); URINE BACTERIA MANY (<OCC); URINE BILIRUBIN NEGATIVE (NEGATIVE); URINE BLOOD NEGATIVE (NEGATIVE); URINE CLARITY Hazy (Clear); URINE COLOR Yellow (YELLOW); URINE GLUCOSE (UA) NORMAL (Normal); URINE LEUKOCYTE ESTERASE 1+ Leu/uL (Negative); URINE PROTEIN NEGATIVE (NEGATIVE)
--- NOTE | 2017-08-03 21:35 | C.PDOC ---
History Of Present Illness 51 year old female presents to the ED for evaluation of persistent left-sided abdominal pain which began 1-2 days ago. She also reports nausea. Patient report she had a prior colonoscopy which revealed polyps. She denies fever, chills, vomiting. Chief Complaint (Nursing): Abdominal Pain History Per: Family (daughter) History/Exam Limitations: no limitations Onset/Duration Of Symptoms: Days (1-2), Persistent Current Symptoms Are (Timing): Still Present Location Of Pain/Discomfort: Other (left-sided ) Quality Of Discomfort: "Pain" Associated Symptoms: Nausea. denies: Fever, Chills, Vomiting Additional History Per: Family Past Medical History Reviewed: Historical Data, Nursing Documentation, Vital Signs Vital Signs: Last Vital Signs Temp 98.2 F 08/03/17 22:38 Pulse 72 08/03/17 22:38 Resp 20 08/03/17 22:38 BP 112/70 08/03/17 22:38 Pulse Ox 100 08/04/17 05:49 - Medical History PMH: No Chronic Diseases Denies: Chronic Kidney Disease Surgical History: Appendectomy (2002) Family History: States: Unknown Family Hx - Social History Hx Tobacco Use: No Hx Alcohol Use: No Hx Substance Use: No - Immunization History Hx Tetanus Toxoid Vaccination: No Hx Influenza Vaccination: No Hx Pneumococcal Vaccination: No Review Of Systems Constitutional: Negative for: Fever, Chills Gastrointestinal: Positive for: Nausea, Abdominal Pain. Negative for: Vomiting , Diarrhea Physical Exam - Physical Exam Appears: Non-toxic, No Acute Distress Skin: Normal Color, Warm, Dry Head: Atraumatic, Normacephalic Eye(s): bilateral: Normal Inspection Oral Mucosa: Moist Neck: Supple Chest: Symmetrical, No Deformity, No Tenderness Cardiovascular: Rhythm Regular, No Murmur Respiratory: Normal Breath Sounds, No Rales, No Rhonchi, No Wheezing Gastrointestinal/Abdominal: Bowel Sounds (present ), Soft, Tenderness (LLQ), No Mass, Guarding (LLQ), No Rebound Extremity: Normal ROM, Capillary Refill (less than 2 seconds ) Neurological/Psych: Oriented x3, Normal Speech, Normal Cognition ED Course And Treatment - Laboratory Results Result Diagrams: 08/03/17 21:46 08/03/17 21:46 O2 Sat by Pulse Oximetry: 100 (on RA) Pulse Ox Interpretation: Normal Medical Decision Making Medical Decision Making: Impression: LLQ pain Differential Diagnoses include but are not limited to: colitis vs diverticulitis Plan and progress: Bloodwork, UA, Cervical Spine XR, LS spine XR ordered and reviewed. Morphine IVP administered. Disposition - Disposition Referrals: Non [facility] Provider, [Primary Care Provider] - Disposition: HOME/ ROUTINE Disposition Time: 05:52 Condition: GOOD Prescriptions: Ciprofloxacin HCl [Cipro] 500 mg PO BID #20 tablet Metronidazole [Flagyl] 500 mg PO TID #30 tablet oxyCODONE/Acetaminophen [Percocet 5/325 mg Tab] 1 ea PO QID PRN #12 tab PRN Reason: Pain, Mild (1-3) Instructions: Diverticulitis Forms: [facility] ([place]izen [place]) Print Language: CZECH - Clinical Impression Clinical Impression: Diverticula of colon, Diverticulitis - Scribe Statement The provider has reviewed the documentation as recorded by the Scribe (Ronit Bajwa) Provider Attestation: All medical record entries made by the Scribe were at my direction and personally dictated by me. I have reviewed the chart and agree that the record accurately reflects my personal performance of the history, physical exam, medical decision making, and the department course for this patient. I have also personally directed, reviewed, and agree with the discharge instructions and disposition.
[2017-08-03 21:51] LABS: BASO # 0.1 K/uL (0.0-0.2); EOS # 0.2 K/uL (0.0-0.7); HEMOGLOBIN 12.9 g/dL (11.0-16.0); LYMPH # 2.6 K/uL (1.0-4.3); LYMPH % 39.5 % (20.0-40.0); MEAN CELL VOLUME 87.6 fL (81.0-99.0); MEAN CORPUSCULAR HEMOGLOBIN 30.7 pg (27.0-31.0); MEAN PLATELET VOLUME 8.1 fL (7.2-11.7); MONO # 0.5 K/uL (0.0-0.8); MONO % 6.9 % (0.0-10.0); NEUT # 3.3 K/uL (1.8-7.0); NEUT % 49.6 % (50.0-75.0); NRBC % 0.1 % (0.0-2.0); RBC 4.22 Mil/uL (3.80-5.20); RED CELL DISTRIBUTION WIDTH 13.3 % (11.5-14.5); WHITE BLOOD COUNT 6.7 K/uL (4.8-10.8)
[2017-08-03] MEDS ORDERED: Morphine 4 MG/ML VIAL ONE (21:55)
[2017-08-03 22:39] VITALS: BP 112/70; PULSE 72; TEMP 98.2
[2017-08-03 22:54] LABS: ALB/GLOB RATIO 1.1 (1.0-2.1); ALT/SGPT 32 U/L (9-52); AST/SGOT 44 U/L (14-36); BLOOD UREA NITROGEN 14 mg/dL (7-17); CALCIUM 8.5 mg/dl (8.6-10.4); GFR AFRICAN-AMERICAN > 60; GFR NON-AFRICAN AMERICAN > 60; LIPASE 69 U/L (23-300)
[2017-08-03 23:06] VITALS: O2SAT 100
== END 2017-08-03 22:39 | disposition home or self-care (01) ==
LOC: SUPCPDRO 19:14 → C.ER 19:14
DX: K57.30 Diverticulosis of large intestine without perforation or abscess without bleeding (principal); K57.92 Diverticulitis of intestine, part unspecified, without perforation or abscess without bleeding
CPT/HCPCS: 80053; 81001; 83690; 84703; 85025; 96374; 99284; J2270

== ENCOUNTER 2018-07-21 14:55 | Emergency (ER) | payer OTHER | END 2018-07-21 19:30 | disposition home or self-care (01) | LOC: C.ER 14:55 ==